=== PATIENT | female | born 1985 | race Caucasian/White ===

== ENCOUNTER 2018-06-26 20:50 | Emergency (ER) | payer OTHER ==
[~2018-06-26] VITALS: Ht 152.4 cm; Wt 59.1 kg
[2018-06-26] MEDS ORDERED: BUSP1TAB PO (21:18)
[2018-06-26] MEDS ORDERED: SERT-155 PO (21:18)
[2018-06-26 22:25] LABS: BASO # 0.1 10^3/uL (0.0-0.2); BASO % 0.5 % (0.0-1.0); EOS # 0.1 10^3/uL (0.0-0.50); EOS % 0.5 % (0.0-3.0); HEMATOCRIT 45.8 % (36.0-47.0); HEMOGLOBIN 15.5 g/dl (12.0-15.5); LYMPH # 2.6 10^3/uL (1.5-4.5); LYMPH % 20.1 % (24.0-44.0); MEAN CORPUSCULAR HGB CONC 33.8 g/dl (32.0-36.5); MEAN CORPUSCULAR VOLUME 88.8 fl (80.0-96.0); MONO # 0.7 10^3/uL (0.0-0.8); MONO % 5.3 % (0.0-5.0); NEUTROPHILS # 9.4 10^3/uL (1.8-7.7); NEUTROPHILS % 73.1 % (36.0-66.0); PLATELET COUNT, AUTOMATED 303 10^3/uL (150-450); RED BLOOD COUNT 5.16 10^6/uL (4.00-5.40); WHITE BLOOD COUNT 12.9 10^3/uL (4.0-10.0)
[2018-06-26 22:41] LABS: HCG, SERUM QUALITATIVE NEGATIVE (NEGATIVE)
[2018-06-26] MEDS ORDERED: ADACEL/BOOSTRIX VACCINE (DIPHTH/PERTUSS/ACELL/TETANUS)0.5ML SYR (90715) IM ONE (23:00)
[2018-06-26] MEDS ORDERED: LIDOCAINE 1% SDV 5 ML VIAL DILUENT ONE (23:00)
[2018-06-26] MEDS ORDERED: metroNIDAZOLE (FLAGYL) 500 MG TAB PO ONE (23:00)
[2018-06-26] MEDS ORDERED: EXPOSURE KIT-ADULT 7 DAY SUPPLY PO ONE (23:00)
[2018-06-26] MEDS ORDERED: AZITHROMYCIN 250 MG TAB PO ONE (23:00)
[2018-06-26] MEDS ORDERED: ULIPRISTAL ACETATE 30 MG TAB (ELLA) PO ONE (23:00)
[2018-06-26] MEDS ORDERED: cefTRIAXone SOD 250 MG VIAL (J0696) IM ONE (23:00)
[2018-06-26 23:31] LABS: BLOOD UREA NITROGEN 13 MG/DL (7-18); CARBON DIOXIDE LEVEL 23 MEQ/L (21-32); CHLORIDE LEVEL 107 MEQ/L (98-107); CREATININE FOR GFR 0.88 MG/DL (0.55-1.30); GLOMERULAR FILTRATION RATE > 60.0 (>60); GLUCOSE, FASTING 97 MG/DL (70-100); POTASSIUM SERUM 4.3 MEQ/L (3.5-5.1); SODIUM LEVEL 137 MEQ/L (136-145)
[2018-06-26 23:32] LABS: ALBUMIN 3.5 GM/DL (3.2-5.2); ALT/SGPT 19 U/L (12-78); BILIRUBIN,TOTAL 0.2 MG/DL (0.2-1.0); CALCIUM LEVEL 8.5 MG/DL (8.5-10.1); TOTAL PROTEIN 6.6 GM/DL (6.4-8.2)
[2018-06-26] MEDS ORDERED: TRUVTAB PO (23:58)
[2018-06-26] MEDS ORDERED: RALT40TA PO (23:58)
[2018-06-27] LABS: HIV 1&2 SCREEN CENTAUR NEGATIVE (NEGATIVE)
[2018-06-27 00:10] VITALS: BP 105/63
[2018-06-27 00:18] LABS: CHLAMYDIA DNA AMPLIFICATION NEGATIVE (NEGATIVE); GC DNA AMPLIFICATION NEGATIVE (NEGATIVE)
[2018-06-28 11:52] LABS: HEPATITIS B SURFACE ANTIGEN NEGATIVE (NEGATIVE); HEPATITIS C VIRUS ABY INDEX 0.1 INDEX (<0.8)
[2018-06-28 11:53] LABS: HEPATITIS B SURFACE ANTIBODY POSITIVE (POSITIVE)
== END 2018-06-27 00:18 | disposition home or self-care (01) ==
LOC: M ED 20:50
DX: T76.21XA Adult sexual abuse, suspected, initial encounter (principal); Y92.810 Car as the place of occurrence of the external cause; N76.0 Acute vaginitis; F33.9 Major depressive disorder, recurrent, unspecified; Z79.899 Other long term (current) drug therapy; Z88.5 Allergy status to narcotic agent; Z91.030 Bee allergy status; F17.210 Nicotine dependence, cigarettes, uncomplicated
CPT/HCPCS: 36415; 80053; 84703; 85025; 86706; 86780; 86803; 87210; 87340; 87389; 87491; 87529; 87591; 90471; 90715; 96372; 99284; J0696

== ENCOUNTER → 2023-07-11 | Outpatient (CLI) | payer OTHER ==
[~2023-07-11] MED LIST: BUSP1TAB PO; EMTR1TAB16 PO; RALT40TA PO; SERT50TA29 PO
== END ==
LOC: M RAD 07:44
PROVIDERS: ATTEND Registered Nurse
DX: M54.50 Low back pain, unspecified (principal)